=== PATIENT | female | born 1990 | race Caucasian/White ===

== ENCOUNTER → 2016-09-24 | Outpatient (CLI) | payer SELFPAY ==
[~2016-09-24] MED LIST: ALBUTEROL 0.5ML; ALBUTEROL17 GM INH; ALLEGRA ALLERGY60 MG PO; AMOXICILLIN; BACTRIM DS TABL1 TA1; BACTRIM DS TABL1 TA1 PO; BACTROBAN22 GM TOP; CELEXA PO; CLEOCIN; CLEOCIN150 M1 PO; DICLOFENAC PO; DIFLUCAN100 MG PO; FLEXERIL PO; HUMALOG100 U/M1; HYDROCODON-ACE1 EAC9 PO; KEFLEX500 M1 PO; KEPPRA100 MG/ML; KEPPRA1000 MG PO; KEPPRA500 MG PO; LEVAQUIN750 MG PO; LEVEMIR; LORTAB 5-325 M1 EACH PO; MEDROL DOSEPAK4 MG PO; NOVOLOG FL100 UNIT/1 SUBQ; PHENERGAN25 M1 PO; PREDNISONE PO; SYMBICORT INH; TRESIBA FL100 UNIT/1 SUBQ; TRULICITY0.75 MG/0.
== END | disposition home or self-care (01) ==
LOC: CBAR 13:26
DX: Z01.818 Encounter for other preprocedural examination (principal); E66.01 Morbid (severe) obesity due to excess calories
CPT/HCPCS: G0463

== ENCOUNTER → 2016-11-05 | Outpatient (CLI) | payer SELFPAY | END | disposition home or self-care (01) | LOC: CBAR 13:56 | DX: Z01.818 Encounter for other preprocedural examination (principal); E66.01 Morbid (severe) obesity due to excess calories | CPT/HCPCS: G0463 ==

== ENCOUNTER → 2016-12-03 | Outpatient (CLI) | payer SELFPAY | END | disposition home or self-care (01) | LOC: CBAR 06:32 | DX: Z01.818 Encounter for other preprocedural examination (principal); E66.01 Morbid (severe) obesity due to excess calories | CPT/HCPCS: G0463 ==

== ENCOUNTER → 2017-01-03 | Outpatient (CLI) | payer SELFPAY | END | disposition home or self-care (01) | LOC: CBAR 10:43 | DX: Z01.818 Encounter for other preprocedural examination (principal); E66.01 Morbid (severe) obesity due to excess calories | CPT/HCPCS: G0463 ==

== ENCOUNTER → 2017-01-24 | Outpatient (CLI) | payer SELFPAY | END | disposition home or self-care (01) | LOC: CBAR 11:13 | DX: Z01.818 Encounter for other preprocedural examination (principal); E66.01 Morbid (severe) obesity due to excess calories | CPT/HCPCS: G0463 ==

== ENCOUNTER → 2017-02-25 | Outpatient (CLI) | payer SELFPAY | END | disposition home or self-care (01) | LOC: CBAR 07:29 | DX: Z01.818 Encounter for other preprocedural examination (principal); E66.01 Morbid (severe) obesity due to excess calories | CPT/HCPCS: G0463 ==

== ENCOUNTER → 2017-03-14 | Outpatient (CLI) | payer BC ==
--- NOTE | ~2017-03-14 | CR63 ---
[facility] A Service of [facility] & [facility] RADIOLOGY TEXT RESULTS PATIENT: NOLAN VALLE LOCATION: [facility] : [birth year] UNIT #: [id number] AGE: [address]: Brian Morales MD SEX: F ORDER DR: [id number] [facility] [address] [place], [place] [address] [id number] O MR#: [id number] Acc #: [id number] NAME: NOLAN VALLE : 1990 SEX: F STUDY DATE/TIME: 03/14/2017 8:45 UNIT: [facility] ROOM: STUDY DESCRIPTION: CR Chest 2 View Attending Physician: Brian Morales M.D. Referring Physician: Brian Morales M.D. Ordering Physician: Brian Morales M.D. Primary Care Physician: Christie Herman Aprn MEDICAL IMAGING REPORT This report is preliminary unless electronic signature is present EXAM Chest, PA and lateral, 03/14/2017. HISTORY Morbid obesity, preop laparoscopic gastric banding. Asthma. FINDINGS The heart is normal in size. There is discoid atelectasis at the left lung base. The lungs are otherwise clear. There are no pleural effusions. IMPRESSION No active pulmonary disease. Dictated by... David Gardner M.D. THIS IS AN ELECTRONICALLY VERIFIED REPORT David Gardner M.D. at 03/17/2017 7:33 AM OKSANA/jojo TD: 03/14/2017 20:19 JOB #: [id number] MEDICAL IMAGING REPORT Page 1 of 1 COPY
--- NOTE | ~2017-03-14 | CR97 ---
[facility] A Service of [facility] & [facility] RADIOLOGY TEXT RESULTS PATIENT: NOLAN VALLE LOCATION: [facility] : 88 UNIT #: [id number] AGE: [address]: Brian Morales MD SEX: F ORDER DR: [id number] [facility] [address] [place], [place] [address] [id number] O MR#: [id number] Acc #: [id number] NAME: NOLAN VALLE : 1990 SEX: F STUDY DATE/TIME: 03/14/2017 9:17 UNIT: [facility] ROOM: STUDY DESCRIPTION: CR Esophagram Attending Physician: Brian Morales M.D. Referring Physician: Brian Morales M.D. Ordering Physician: Brian Morales M.D. Primary Care Physician: Christie Herman Aprn MEDICAL IMAGING REPORT This report is preliminary unless electronic signature is present EXAM Esophagram December 12, 2016 HISTORY Planned bariatric surgery, preoperative evaluation. PROCEDURE Study performed with solid column upper GI with 0.3 minutes of fluoroscopy and 5 spot images. FINDINGS Esophagus is normal in course and caliber without stricture, mass, ulceration or hernia. IMPRESSION Normal esophagram. Dictated by... Jj Olivo M.D. THIS IS AN ELECTRONICALLY VERIFIED REPORT Jj Olivo M.D. at 03/17/2017 9:06 AM COLLINS/mc TD: 03/15/2017 01:49 JOB #: [id number] MEDICAL IMAGING REPORT Page 1 of 1 COPY
--- NOTE | ~2017-03-14 | EKG ---
PATIENT: NOLAN VALLE UNIT #: [id number] Ventricular Rate: 63 BPM Atrial Rate: 63 BPM P-R Interval: 222 ms QRS Duration: 90 ms Q-T Interval: 438 ms QTC Calculation(Bezet): 448 ms P [place]: 33 degrees Calculated R [place]: 31 degrees Calculated T [place]: 12 degrees Diagnosis Line: Sinus rhythm with 1st degree A-V block Diagnosis Line: Otherwise normal ECG Diagnosis Line: No previous ECGs available Diagnosis Line: Confirmed by JOHNNY OTTO MD ([id number]) on 03/14/2017 Diagnosis Line: 5:28:10 PM INTERPRETING MD: CLARITA KEATING
[2017-03-14 10:18] LABS: HEMOGLOBIN 11.5 gm/dL (12.0-16.0); MEAN CELL VOLUME 81.6 FL (83-96); MEAN CORPUSCULAR HEMOGLOBIN 26.9 PG (28-34); MEAN CORPUSCULAR HGB CONC 32.9 g/dL (30-36); MEAN PLATELET VOLUME 7.3 FL (6.5-11.5); RED BLOOD COUNT 4.28 X10e (3.90-5.30); RED CELL DISTRIBUTION WIDTH 14.3 % (11.0-15.5)
[2017-03-14 11:01] LABS: ALBUMIN SERUM 3.6 g/dL (3.5-5.0); BILIRUBIN,TOTAL 0.6 mg/dL (0.2-2.0); BUN/CREATININE RATIO 21.66; CREATININE SERUM 0.6 mg/dL (0.6-1.4); GLOM FILT RATE Estimated 124.9 mL/min (>60); POTASSIUM 4.2 mmol/L (3.5-5.1)
== END | disposition home or self-care (01) ==
LOC: CRAD 08:25 → CAMB 10:00
PROVIDERS: Surgery
DX: Z01.818 Encounter for other preprocedural examination (principal); E66.09 Other obesity due to excess calories
CPT/HCPCS: 36415; 71020; 74220; 80053; 80061; 84443; 85027; 93005

== ENCOUNTER → 2017-03-26 | Day surgery (SDC) | payer BC ==
--- NOTE | ~2017-03-26 | CR7 ---
[facility] A Service of [facility] & [facility] RADIOLOGY TEXT RESULTS PATIENT: NOLAN VALLE LOCATION: [facility] : 88 UNIT #: [id number] AGE: [address]: Brian Morales MD SEX: F ORDER DR: [id number] [facility] [address] [place], [place] [address] [id number] O MR#: [id number] Acc #: [id number] NAME: NOLAN VALLE : 1990 SEX: F STUDY DATE/TIME: 03/26/2017 11:41 UNIT: [facility] ROOM: STUDY DESCRIPTION: CR Abdomen Single AP View Attending Physician: Brian Morales M.D. Ordering Physician: Brian Morales M.D. Primary Care Physician: Christie Herman Aprn MEDICAL IMAGING REPORT This report is preliminary unless electronic signature is present EXAM Abdomen 03/26 INDICATIONS Status post gastric band placement today. Abdominal pain. FINDINGS Supine view of the abdomen was obtained. Gastric band is present with phi angle of 69 degrees. Port is in the left lower quadrant. Bowel gas pattern is normal. IMPRESSION Gastric band in place. Phi angle was 69 degrees. Dictated by... Tripp Lemus Jr., M.D. THIS IS AN ELECTRONICALLY VERIFIED REPORT Tripp Lemus Jr., M.D. at 03/27/2017 8:29 AM RLK/kya TD: 03/26/2017 21:00 JOB #: [id number] MEDICAL IMAGING REPORT Page 1 of 1 COPY
--- NOTE | ~2017-03-26 | OR ---
Unit #: [id number] #: [id number] Patient: NOLAN VALLE 1840[address] [address] [address] [id number] O MR#: [id number] NAME: NOLAN VALLE ROOM: Date of Procedure: 03/26/2017 Admission Date: 03/26/2017 Surgeon: Brian Morales M.D. : 1990 Attending Physician: Brian Morales M.D. Primary Care Physician: Christie Herman Aprn OPERATIVE REPORT PREOPERATIVE DIAGNOSIS Chronic obesity, body mass index of 41. POSTOPERATIVE DIAGNOSES 1. Chronic obesity, body mass index of 41. 2. Paraesophageal hiatal hernia. PROCEDURES PERFORMED 1. Laparoscopic adjustable gastric band. 2. Laparoscopic paraesophageal hiatal hernia repair. ASSISTANT Fredy Ontiveros M.D. ANESTHESIA General anesthesia. ESTIMATED BLOOD LOSS Minimal. IV FLUIDS 800 crystalloid. COMPLICATIONS None. INDICATIONS FOR PROCEDURE The patient is a 26-year-old with chronic morbid obesity. DESCRIPTION OF PROCEDURE The patient was taken to the operating room and placed in supine position. General anesthesia was induced. The abdomen was prepped and draped. A 3-cm incision was then made left of the midline. A 10-mm Visiport was then placed intraabdominal under direct vision. The abdomen was insufflated to 15 mmHg with CO2. The patient was then placed in a steep reversed Trendelenburg. General inspection of the abdomen revealed what appeared to be a paraesophageal hernia. This was identified with a defect at the diaphragm using anterior palpation with the instrument. We then made a small incision in the subxiphoid region. A Reji liver retractor was then placed intraabdominal and used to retract the left lobe of the liver upward to further expose the paraesophageal hernia and GE junction. I then placed a 5-mm port in the right upper quadrant, a 10-mm Unit #: [id number] #: [id number] Patient: NOLAN VALLE port in the left upper quadrant, and another 5-mm port in the left lower quadrant. The stomach was retracted medial and downward. Upon retracting the stomach, we took down the paraesophageal ligament, exposing the right and left veronica at the paraesophageal hernia. Any hernia sac was reduced. We then repaired the paraesophageal hernia using interrupted #0 Ethibond sutures in a ekjfoo-un-[id number] type fashion. This formed a snug repair to the anterior esophagus. We then retracted the stomach medially and further exposed the angle of His using Bovie electrocautery. The stomach was then retracted laterally. We then took down the hepatogastric ligament with Bovie electrocautery. This exposed the right veronica. Using blunt dissection, I created a retrogastric tunnel from this point to the angle of His. The band was then placed intraabdominal through the 10-mm port site. This was then brought through the retrogastric tunnel in a pars flaccida technique. The band was then closed anteriorly to form a 20-mL to 25-mL anterior gastric pouch. The fundus was then secured to the anterior pouch to prevent movement around the stomach using two interrupted #0 Ethibond sutures. A third suture was then used as a gathering stitch from the lesser curve to the anterior stomach, gathering and imbricating the remaining fundus of the stomach. The tubing was then brought out through the midline 10-mm port site. All ports and the Reji liver retractor were removed under direct vision with no evidence of abdominal hemorrhage. A polypropylene mesh was then secured to the posterior face of the laparoscopic band port. This was secured using #0 Ethibond suture. This was then cut to shape. The port was then connected to the tubing and placed into a subcutaneous pocket just anterior to the rectus sheath. Its position was then confirmed. All tubing was then placed intraabdominal. The wounds were then closed with interrupted 4-0 Vicryl. The patient tolerated the procedure well and was sent to the recovery room in good condition. Dictated by... Julissa Cristobal/jennifer TD: 03/26/2017 19:58 JOB #: [id number] OPERATIVE REPORT Page 1 of 1 X Brian Morales MD PROCEDURE OPERATIVE NOTE
== END | disposition home or self-care (01) ==
LOC: CSUR 08:05
DX: E66.01 Morbid (severe) obesity due to excess calories (principal); K44.9 Diaphragmatic hernia without obstruction or gangrene; J45.909 Unspecified asthma, uncomplicated; E11.9 Type 2 diabetes mellitus without complications; F41.8 Other specified anxiety disorders; G40.909 Epilepsy, unspecified, not intractable, without status epilepticus; E78.5 Hyperlipidemia, unspecified; Z72.4 Inappropriate diet and eating habits; Z68.41 Body mass index [BMI] 40.0-44.9, adult; Z79.4 Long term (current) use of insulin; Z79.899 Other long term (current) drug therapy; Z79.51 Long term (current) use of inhaled steroids; Z98.51 Tubal ligation status; Z98.890 Other specified postprocedural states
CPT/HCPCS: 74000; 82947; 84703; C1781; J0330; J0690; J1650; J1885; J2250; J2405; J2550; J2710; J3010